=== PATIENT | female | born 1985 | race American Indian/Alaskan Native ===

== ENCOUNTER 2018-07-13 16:03 | Emergency (ER) | payer OTHER, BC ==
[2018-07-13 16:30] VITALS: PULSE 61; TEMP 98.2; BMI 31.4
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
[2018-07-13 17:24] VITALS: BP 124/86; RESP 16; O2SAT 97
== END 2018-07-13 17:40 | disposition home or self-care (01) ==
LOC: ED 16:03
DX: M54.2 Cervicalgia (principal)
CPT/HCPCS: 81025; 96372; 99284; J1885

== ENCOUNTER → 2018-07-17 | Outpatient (CLI) | payer OTHER, BC | LOC: RAD 12:57 ==